=== PATIENT | male | born 1985 | race Caucasian/White ===

== ENCOUNTER 2021-09-26 14:20 | Emergency (ER) | payer OTHER ==
[~2021-09-26] VITALS: Ht 185.4 cm; Wt 90.7 kg
== END 2021-09-26 15:57 | disposition home or self-care (01) ==
LOC: ER 14:20
DX: S92.515A Nondisplaced fracture of proximal phalanx of left lesser toe(s), initial encounter for closed fracture (principal); X58.XXXA Exposure to other specified factors, initial encounter
CPT/HCPCS: 73630